=== PATIENT | male | born 1980 | race African-American/Black ===

== ENCOUNTER → 2016-12-06 | Outpatient (CLI) | payer OTHER ==
[~2016-12-06] MED LIST: DECADRON6 MG PO; EFFEXOR100 MG PO; MEDROL 4MG DOSPA4 MG PO; NORCO 325 MG-51 TAB PO; PRINZIDE 12.5 M1 TA1 PO; VALIUM 5MG T5 MG/TAB PO; WELLBUTRIN SR200 MG PO
== END ==
LOC: BHSO 13:04
DX: F43.10 Post-traumatic stress disorder, unspecified (principal)

== ENCOUNTER → 2017-01-31 | Outpatient (CLI) | payer OTHER | LOC: BHSO 14:02 | DX: F43.10 Post-traumatic stress disorder, unspecified (principal) ==

== ENCOUNTER 2017-02-18 17:00 | Emergency (ER) | payer OTHER ==
[~2017-02-18] VITALS: Ht 172.7 cm; Wt 104.5 kg
[~2017-02-18 17:00] MED LIST changes: -DECADRON6 MG PO; -NORCO 325 MG-51 TAB PO; -VALIUM 5MG T5 MG/TAB PO
[2017-02-18 17:05] VITALS: TEMP 98.6
[2017-02-18 17:52] LABS: BASO % 0.4 % (0.0-2.0); EOS # 0.2 (0.0-0.7); EOS % 2.1 % (0-4.0); GRAN # 5.6 (1.4-6.5); GRAN % 58.9 % (42.2-75.2); HEMATOCRIT 43.4 % (42.0-52.0); HEMOGLOBIN 14.4 g/dl (13.5-18.0); LYMPH # 3.1 (1.2-3.4); LYMPH % 32.6 % (20.0-51.0); MEAN CELL VOLUME 89 fl (80.0-100.0); MEAN CORPUSCULAR HEMOGLOBIN 30 pg (27.0-31.0); MEAN CORPUSCULAR HGB CONC 33 g/dl (33.0-37.0); MONO # 0.6 (0.1-0.6); MONO % 5.8 % (1.7-9.3); PLATELET COUNT 212 K/mm3 (130-400); RED BLOOD COUNT 4.87 M/mm3 (4.20-5.60); REDCELL DISTRIBUTION WIDTH-CV 13.4 % (11.5-14.5); WHITE BLOOD COUNT 9.4 K/mm3 (4.8-10.8)
[2017-02-18 18:01] LABS: ADJUSTED CALCIUM 9.3 mg/dL (8.4-10.2); ALBUMIN 4.5 gm/dL (3.5-5.0); BILIRUBIN,TOTAL 0.6 mg/dL (0.0-1.0); C-REACTIVE PROTEIN 2.4 mg/dL (0.0-0.9); CALCIUM 9.7 mg/dL (8.4-10.2); CREATININE, serum 1.08 mg/dL (0.66-1.25); POTASSIUM 3.7 mmol/L (3.4-5.0); TOTAL PROTEIN 8.4 gm/dL (6.4-8.2)
[2017-02-18 18:15] LABS: ERYTHROCYTE SEDIMENTATION RATE 16 mm/hr (0-15)
[2017-02-18] MEDS ORDERED: NORCO 325 MG-51 TAB PO (19:31)
[2017-02-18] MEDS ORDERED: DECADRON6 MG PO ×2 (19:31→19:55)
[2017-02-18] MEDS ORDERED: VALIUM 5MG T5 MG/TAB PO (19:31)
[2017-02-18 19:57] VITALS: BP 145/88; PULSE 79
== END 2017-02-18 20:00 | disposition home or self-care (01) ==
LOC: COL.ER 17:00
PROVIDERS: Emergency Medicine
DX: J03.00 Acute streptococcal tonsillitis, unspecified (principal); J02.0 Streptococcal pharyngitis; M54.2 Cervicalgia; K12.2 Cellulitis and abscess of mouth; R59.0 Localized enlarged lymph nodes; F43.10 Post-traumatic stress disorder, unspecified
CPT/HCPCS: J0561; J1100; J1200; J1885; J3360; J7030; Q9967

== ENCOUNTER → 2017-04-04 | Outpatient (CLI) | payer OTHER ==
[~2017-04-04] MED LIST changes: +DECADRON6 MG PO; +NORCO 325 MG-51 TAB PO; +VALIUM 5MG T5 MG/TAB PO
== END ==
LOC: BHSO 14:19
DX: F43.10 Post-traumatic stress disorder, unspecified (principal)

== ENCOUNTER 2018-01-07 20:33 | Emergency (ER) | payer OTHER ==
[~2018-01-07] VITALS: Ht 172.7 cm; Wt 101.6 kg
[2018-01-07 20:45] VITALS: TEMP 98.3
[2018-01-07] MEDS ORDERED: FORFIVO XL450 MG PO (21:02)
[2018-01-07] MEDS ORDERED: EFFEXOR-XR150 MG PO (21:03)
[2018-01-07] MEDS ORDERED: PRINZIDE 12.5 M1 TAB PO (22:23)
[2018-01-07 23:17] VITALS: BP 185/101; PULSE 71
== END 2018-01-07 23:25 | disposition home or self-care (01) ==
LOC: COL.ER 20:33
DX: S63.501A Unspecified sprain of right wrist, initial encounter (principal); I10 Essential (primary) hypertension; F17.210 Nicotine dependence, cigarettes, uncomplicated; F43.10 Post-traumatic stress disorder, unspecified; F41.9 Anxiety disorder, unspecified; Z91.14 Patient's other noncompliance with medication regimen; W18.09XA Striking against other object with subsequent fall, initial encounter; Y92.009 Unspecified place in unspecified non-institutional (private) residence as the place of occurrence of the external cause

== ENCOUNTER → 2019-05-06 | Outpatient (CLI) | payer OTHER ==
[~2019-05-06] MED LIST changes: +EFFEXOR-XR150 MG PO; +FORFIVO XL450 MG PO; +PRINZIDE 12.5 M1 TAB PO
== END ==
LOC: COL.RAD 11:49
DX: M54.5 Low back pain (principal)